=== PATIENT | female | born 1985 | race Caucasian/White ===

== ENCOUNTER 2020-02-27 18:00 | Outpatient (CLI) | payer OTHER, SELFPAY ==
--- NOTE | ~2020-02-27 | CT_ITS ---
EXAMINATION: CT sinus wo con DATE: 02/27/2020 18:15 INDICATION: Right eye pain TECHNIQUE: Computed tomography (CT) of the paranasal sinuses was performed without intravenous contra st. Coronal reconstructions were obtained. Iterative reconstruction technique was employed. The dose- length product was 313.83 mGy-cm. COMPARISON: None FINDINGS: Minimal mucosal thickening in the right maxillary and anterior left ethmoid sinuses. Bilateral ostiom eatal units are patent. Nasal septum is midline with right-sided spike. No maxillofacial fractures or osseous erosions. Subtle angulation at the suture between the left nasal bone and the anterior proce ss of the left maxilla which may represent sequela of old trauma. Bilateral orbits are normal. Bilate ral mastoid air cells and middle ear cavities are clear. Temporomandibular joints are normal alignmen t. The brain and facial soft tissues are unremarkable. IMPRESSION: 1. Minimal mucosal thickening in the right maxillary and anterior left ethmoid sinuses otherwise unre markable study with no etiology identified for reported right orbital pain. Reviewed, dictated and finalized at location [facility]. [employer] IMPRESSION: 1. Minimal mucosal thickening in the right maxillary and anterior left ethmoid sinuses otherwise unremarkable study with no etiology identified for reported r ight orbital pain.
== END 2020-02-27 18:01 | disposition home or self-care (01) ==
PROVIDERS: PCP Family Medicine; Visit Provider Family Medicine
DX: H57.11 Ocular pain, right eye (principal); G44.029 Chronic cluster headache, not intractable
CPT/HCPCS: 70486

== ENCOUNTER 2020-10-17 01:14 | Emergency (ER) | payer OTHER, SELFPAY ==
--- NOTE | ~2020-10-17 | CT_ITS ---
EXAMINATION: CT brain wo con DATE: 10/17/2020 01:43 INDICATION: Head injury. TECHNIQUE: Computed tomography (CT) of the head was performed without intravenous contrast. The mA wa s adjusted according to patient size. Iterative reconstruction technique was employed. The dose-lengt h product was 605.33 mGy-cm. COMPARISON: Sinuses CT 02/27/2020 FINDINGS: There is no intracranial hemorrhage, acute infarction, or abnormal intracranial mass lesion . The ventricles are normal in size. There is posterior scalp soft tissue swelling. There is mild muc osal thickening in the paranasal sinuses. The mastoid air cells are normal. The orbits are normal. IMPRESSION: 1. Normal brain. Reviewed, dictated and finalized at location A. IMPRESSION: 1. Normal brain.
[2020-10-17 01:15] VITALS: BP 159/95; PULSE 104; RESP 16; TEMP 37; O2SAT 99
--- NOTE | 2020-10-17 01:37 | ED.FALL ---
HPI - Fall General Chief Complaint: Fall Stated Complaint: slid in water and hit back of head-loc Time Seen by Provider: 10/17/20 01:22 Source: RN notes reviewed History of Present Illness HPI Narrative: Patient presents to emergency department from home for a fall. Patient states that she had had water in her basement from recent rain and slipped on the water in the basement falling backwards and striking her head states she did have loss of consciousness. She states initially she had numbness in the bilateral sides of her face that has improved and states she has a severe headache she denies any facial pain, neck pain or any other injuries states she has taken nothing for the pain patient does state that she has been having some right ear pain for the last week is scheduled to see Dr. Knight for ENT on the of the Related Data Allergies Allergy/AdvReac Type Severity Reaction Status Date / Time midazolam [From Versed] Allergy Mild Rash Verified 10/17/20 01:19 sumatriptan [From Imitrex] Allergy Mild throat Verified 10/17/20 01:19 swelling ubrogepant [From Ubrelvy] AdvReac Intermediate nausea Verified 10/17/20 01:19 Review of Systems Review of Systems: Narrative: Gen.: Denies fevers or chills Eyes: Denies eye pain or visual change ENT: Denies congestion Respiratory: Denies shortness of breath or cough CV: Denies chest pain or palpitations GI: Denies abdominal pain nausea, emesis or diarrhea Musculoskeletal: Denies back pain or muscle pain Neuro: See HPI Skin: Denies rash Except as documented, all other systems reviewed and negative PMFSH Past Medical History Medical History Fracture, pelvis closed Hyperhidrosis Migraines PCOS (polycystic ovarian syndrome) Pneumothorax Wrist fracture, bilateral Surgical History Surgical History H/O chest tube placement Hx of section Family History Family History Other Breast cancer Cerebrovascular accident Heart disease Hypertension Social History Social History Social History: Second hand tobacco smoke exposure: No Alcohol intake: never Alcohol use details: occassionally Substance use: never Substance use type: does not use Gender identity (if verbalized by the patient): Female Sexual Orientation (if Verbalized by the Patient): Straight or Heterosexual Exam Narrative: Exam Narrative: APPEARANCE: No acute distress, nontoxic, resting in bed EYES: EOMI, PERRL HEENT: Normocephalic, tender to palpation with swelling of her superior posterior scalp , no tenderness to palpation over the bilateral superior inferior orbits or zygomatic arch full range of motion of the jaw without pain left TM is normal in appearance the right TM has some erythema with effusion Neck: Supple no midline tenderness palpation for range of motion without pain RESPIRATORY: No respiratory distress Clear to auscultation bilaterally with no rhonchi wheezing or rales. CARDIOVASCULAR: Regular rate and rhythm without murmurs rubs or gallops. ABDOMINAL: Soft, nontender, nondistended, MUSCULOSKELETAl: Moves all extremities. No clubbing, cyanosis or edema. NEURO: Awake and alert x 4. Following commands, speech normal, no focal deficits SKIN:: Warm, dry. No rashes lesions or abrasions PSYCHIATRIC: Normal affect/mood, Course Course Emergency Course: Discussed with patient results of workup and diagnosis. Discussed need for follow-up with primary care, proper use of medication, and reasons to return to the emergency department. Patient understands and agrees to current treatment plan Vital Signs Vital signs: Vital Signs Temperature 98.6 F 10/17/20 01:15 Pulse Rate 104 H 10/17/20 01:15 Respiratory Rate 16 10/17/20 01:15 Blood Pre
[2020-10-17] MEDS: IBUPROFEN 600 MG TABLET PO (01:55)
[2020-10-17] MEDS: AMOXICILLIN/CLAVULANATE K 875-125 MG TAB 1 TABLET PO (02:59)
== END 2020-10-17 03:06 | disposition home or self-care (01) ==
PROVIDERS: Emergency Provider Emergency Medicine; PCP Family Medicine
DX: S00.93XA Contusion of unspecified part of head, initial encounter (principal); H66.91 Otitis media, unspecified, right ear; E28.2 Polycystic ovarian syndrome; W01.0XXA Fall on same level from slipping, tripping and stumbling without subsequent striking against object, initial encounter
CPT/HCPCS: 70450; 99284; A9270

== ENCOUNTER 2020-12-06 13:58 | Outpatient (CLI) | payer OTHER, SELFPAY | END 2020-12-06 13:59 | disposition home or self-care (01) | LOC: ANHAUDASC 13:59 | PROVIDERS: PCP Family Medicine; Visit Provider Otolaryngology | DX: H65.23 Chronic serous otitis media, bilateral (principal); H90.0 Conductive hearing loss, bilateral | CPT/HCPCS: 92557; 92567 ==

== ENCOUNTER 2021-11-14 00:11 | Day surgery (SDC) | payer OTHER, SELFPAY ==
[2021-11-04 15:11] VITALS: BMI 29.9
--- NOTE | 2021-11-14 12:26 | PM.HPGS ---
History of Present Illness History of Present Illness Consent: Risks, benefits, and alternatives have been discussed and questions answered. Patient agrees to proceed with procedure. Chief complaint: constipation Narrative: Rosaura Barclay is a 36 year old female with constipation using linzess without much benefit, never had colonoscopy. Father had colon cancer. Review of Systems Constitutional: Constitutional: Denies headache(s) and Denies weakness Eyes: Eyes: Denies blurry vision ENT: Reports Normal hearing present, Denies headache(s) and Denies neck pain Cardiovascular: Cardiovascular: Denies chest pain and Denies dyspnea Respiratory: Respiratory: Denies dyspnea Gastrointestinal: Gastrointestinal: Reports no additional gastrointestinal complaints Genitourinary: Genitourinary: Denies dysuria Musculoskeletal: Musculoskeletal: Denies neck pain Integumentary/Breasts: Skin/Breast: Denies dry skin Neurologic: Reports Normal hearing present, Denies headache(s) and Denies weakness Psychiatric: Psychiatric: Denies anxiety Endocrine: Endocrine: Denies change in body appearance Hematologic/Lymphatic: Hematologic/Lymphatic: Denies easy bleeding Allergic/Immunologic: Allergic/Immunologic: Denies urticaria PMFSH Past Medical History Medical History Fracture, pelvis closed Hyperhidrosis Migraines PCOS (polycystic ovarian syndrome) Pneumothorax Wrist fracture, bilateral Surgical History Surgical History H/O chest tube placement Hx of section Family History Family History Father Heart disease Carcinoma of colon, Onset Age: 40 Mother Alcoholism Asthma Hypertension Depression Heart disease Sibling Depression Thyroid disorder Grandparent Cancer Grandparent Cerebrovascular accident Heart disease Other Breast cancer Social History Social History (Updated 09/30/21 @ 10:27 by Dana Leonard) Social History: Smoking status: Never smoker Second hand tobacco smoke exposure: No Alcohol intake: current Alcohol use details: occassionally Substance use: never Substance use type: does not use Living arrangements: with family Gender identity (if verbalized by the patient): Female Sexual Orientation (if Verbalized by the Patient): Straight or Heterosexual Spiritual care concerns: No Meds Home Medications and Allergies Home Medications Medication Instructions Recorded Confirmed Type medroxyprogesterone 10 mg tablet 10 mg PO DAILY #30 tabs 09/30/21 11/04/21 Rx (Provera) linaclotide 145 mcg capsule 145 mcg PO DAILY PRN Constipation 11/04/21 11/04/21 History (Linzess) metformin 500 mg tablet 500 mg PO DAILY 11/04/21 11/04/21 History Allergies Allergy/AdvReac Type Severity Reaction Status Date / Time sumatriptan [From Imitrex] Allergy Severe throat Verified 11/14/21 12:22 swelling midazolam [From Versed] Allergy Mild Rash Verified 11/14/21 12:22 Exam Const: General: comfortable and no acute distress HENMT: General nose exam: Normal nares present Eyes: General: appearance normal, both eyes and all related structures Neck: Neck: no JVD Resp: Auscultation: clear to auscultation bilaterally Cardio: Rate: regular rate Rhythm: regular rhythm GI: Inspection: non-distended GI Palp: Yes Soft to palpation Skin: General skin exam: normal color Neuro: General: gait normal Speech: normal speech Extrem: General: normal to inspection Psych: Mental Status: mental status grossly normal Assessment and Plan Assessment and plan (1) Chronic constipation: Code(s): K59.09 - Other constipation Status: Acute (2) FHx: colon cancer: Code(s): Z80.0 - Family history of malignant neoplasm of digestive organs Status: Acute Assessment and
[2021-11-14 12:27] VITALS: BP 131/98; PULSE 67; RESP 18; TEMP 36.3; O2SAT 100
[2021-11-14] MEDS: LACTATED RINGERS 1,000 ML 150 ML IV CONT (12:29)
--- NOTE | 2021-11-14 12:31 | WPDANESEPPF ---
Anes - Initial Pre Proc Eval Procedure: Operation Date: 11/14/21 13:45 Proposed Procedures p Colonoscopy - Endy Keating MD Date/Time: 11/14/21 12:31 Surgeon: Endy Keating MD Pre Op Diagnosis: constipation Patient Data Age: 36 Gender: F Height: 1.63 m Weight: 80.3 kg Last Vital Signs Temp 97.3 F L 11/14/21 12:27 Pulse 67 11/14/21 12:27 Resp 18 11/14/21 12:27 BP 131/98 H 11/14/21 12:27 Pulse Ox 100 11/14/21 12:27 O2 Del Method Room Air 11/14/21 12:27 Allergies Allergy/AdvReac Type Severity Reaction Status Date / Time sumatriptan [From Imitrex] Allergy Severe throat Verified 11/14/21 12:22 swelling midazolam [From Versed] Allergy Mild Rash Verified 11/14/21 12:22 Home Medications Medication Instructions Recorded Confirmed Type medroxyprogesterone 10 mg tablet 10 mg PO DAILY #30 tabs 09/30/21 11/04/21 Rx (Provera) linaclotide 145 mcg capsule 145 mcg PO DAILY PRN Constipation 11/04/21 11/04/21 History (Linzess) metformin 500 mg tablet 500 mg PO DAILY 11/04/21 11/04/21 History Patient hx anesthesia problems: none Family hx anesthesia problems: none Results Review: All pre-operative results and documents have been reviewed as part of the pre-operative evaluation. [facility] Past Medical History Medical History Fracture, pelvis closed Hyperhidrosis Migraines PCOS (polycystic ovarian syndrome) Pneumothorax Wrist fracture, bilateral Surgical History Surgical History H/O chest tube placement Hx of section Family History Family History Father Heart disease Carcinoma of colon, Onset Age: 40 Mother Alcoholism Asthma Hypertension Depression Heart disease Sibling Depression Thyroid disorder Grandparent Cancer Grandparent Cerebrovascular accident Heart disease Other Breast cancer Social History Social History (Updated 09/30/21 @ 10:27 by Dana Leonard) Social History: Smoking status: Never smoker Second hand tobacco smoke exposure: No Alcohol intake: current Alcohol use details: occassionally Substance use: never Substance use type: does not use Living arrangements: with family Gender identity (if verbalized by the patient): Female Sexual Orientation (if Verbalized by the Patient): Straight or Heterosexual Spiritual care concerns: No Anes - Eval Final PreProcedure Day of Procedure 11/14/21 12:31 Patient weight: obese Heart: regular rate and rhythm Lungs: clear to auscultation Airway: Mallampati scale class II Neurological: alert and oriented Last oral intake: >/= 8 hours ASA classification: II Emergent: no Anesthetic plan: proceed Anesthesia type and monitoring: general GIVS and standard monitoring Results Review: All pre-operative results and documents have been reviewed as part of the pre-operative evaluation. Informed Consent: The patient's anesthetic plan and its attendant risks and benefits were discussed with the patient/family/POA. Questions were solicited and answers provided to the satisfaction of the patient/family/POA.
[2021-11-14 12:57] VITALS: BP 100/86; PULSE 71; RESP 18; O2SAT 100
[2021-11-14 13:07] VITALS: BP 91/58; PULSE 80; RESP 19; O2SAT 100
[2021-11-14 13:17] VITALS: BP 104/72; PULSE 71; RESP 19; O2SAT 100
== END 2021-11-14 13:24 | disposition home or self-care (01) ==
PROVIDERS: PCP Family Medicine; Visit Provider Internal Medicine Gastroenterology
PROC: 0DJD8ZZ Inspection of Lower Intestinal Tract, Via Natural or Artificial Opening Endoscopic (ICD-10-PCS; CPT 45378; principal; 2021-11-14 13:45)
DX: Z12.11 Encounter for screening for malignant neoplasm of colon (principal); D12.0 Benign neoplasm of cecum; Z80.0 Family history of malignant neoplasm of digestive organs; K64.8 Other hemorrhoids; K59.00 Constipation, unspecified; Z79.84 Long term (current) use of oral hypoglycemic drugs; R61 Generalized hyperhidrosis; E28.2 Polycystic ovarian syndrome; E66.9 Obesity, unspecified; Z68.30 Body mass index [BMI] 30.0-30.9, adult
CPT/HCPCS: 45385; 88305; J2704; J7120

== ENCOUNTER 2023-04-24 13:30 | Outpatient (CLI) | payer OTHER, SELFPAY ==
[2023-04-24 14:41] LABS: Influenza A QL RT-PCR Negative (Negative); Influenza B QL RT-PCR Negative (Negative); RSV RNA, RT-PCR Negative (Negative); SARS-CoV-2 RNA PCR Negative (Negative)
== END 2023-04-24 13:31 | disposition home or self-care (01) ==
LOC: ANHLAB 13:32
PROVIDERS: PCP Family Medicine; Visit Provider Physician Assistant
DX: J02.9 Acute pharyngitis, unspecified (principal); Z20.822 Contact with and (suspected) exposure to COVID-19
CPT/HCPCS: 87637

== ENCOUNTER 2023-04-26 07:25 | Emergency (ER) | payer OTHER, SELFPAY ==
[2023-04-26] VITALS (8 sets, daily range): BP systolic 111–139; BP diastolic 71–89; PULSE 88–91; RESP 16–20; TEMP 36.3; O2SAT 97–100
[2023-04-26 08:29] LABS: Influenza A QL RT-PCR Negative (Negative); Influenza B QL RT-PCR Negative (Negative); RSV RNA, RT-PCR Negative (Negative); SARS-CoV-2 RNA PCR Negative (Negative)
[2023-04-26] MEDS: KETOROLAC 30 MG/ML VIAL (*BKC) IV PUSH (10:05)
[2023-04-26] MEDS: LACTATED RINGERS 1,000 ML 999 ML IV CONT (10:05)
[2023-04-26] MEDS: MECLIZINE HCL 25 MG TABLET PO (10:07)
[2023-04-26] MEDS: PROCHLORPERAZINE EDISYLATE 10 MG/2 ML VIAL IV PUSH (10:07)
--- NOTE | 2023-04-26 10:08 | ED.GENADULT ---
HPI - General Adult General Chief complaint: Upper Respiratory Infection Stated complaint: so sick for a week Time Seen by Provider: 04/26/23 08:53 History of Present Illness HPI narrative: Rosaura Barclay is a 38 y/o female who presents today with complaints of having a URI symptoms of cough/sore throat/ headache/ ear pain now for over 1 week,. she states that her PCP put her on steroids 6 days ago that she finished and started her on Augmentin and azithromycin yesterday for URI/ ear infection. She presents today because she states she is feeling worsening left ear pain/ light headed dizzy/ nausea She took her antibiotics yesterday but has not yet today because she felt worse. No SOB/chest pain Related Data Home Medications Medication Instructions Recorded Confirmed linaclotide 145 mcg capsule 145 mcg PO DAILY PRN Constipation 11/04/21 04/25/23 (Linzess) metformin 500 mg tablet 500 mg PO DAILY 11/04/21 04/25/23 Allergies Allergy/AdvReac Type Severity Reaction Status Date / Time sumatriptan [From Imitrex] Allergy Severe throat Verified 04/26/23 07:37 swelling midazolam [From Versed] Allergy Mild Rash Verified 04/26/23 07:37 Review of Systems Review of Systems: CONSTITUTIONAL: Denies fever, chills, or sweats. EYES: Denies visual changes, redness, or discharge. ENT: Denies rhinorrhea, reports congestion, reports sore throat, reports severe left ear pain CARDIOVASCULAR: Denies chest pain, palpitations, or edema. RESPIRATORY: Reports cough off and on for over a week denies dyspnea. GASTROINTESTINAL: Denies abdominal pain, nausea, vomiting, or diarrhea. GENITOURINARY: Denies dysuria or hematuria. SKIN: Denies rash or itching. MUSCULOSKELETAL: Denies back pain, joint pain, or myalgia. NEUROLOGIC: Denies headache, numbness, reports having some dizziness today or weakness. PSYCHIATRIC: Denies anxiety or depression. [facility] Past Medical History Medical History Fracture, pelvis closed Hyperhidrosis Migraines PCOS (polycystic ovarian syndrome) Pneumothorax Wrist fracture, bilateral Surgical History Surgical History H/O chest tube placement Hx of section Family History Family History Father Heart disease Carcinoma of colon, Onset Age: 40 Mother Alcoholism Asthma Hypertension Depression Heart disease Sibling Depression Thyroid disorder Grandparent Cancer Grandparent Cerebrovascular accident Heart disease Other Breast cancer Social History Social History Social History: Smoking status: Never smoker Second hand tobacco smoke exposure: No Alcohol intake: current Alcohol use details: occassionally Substance use: never Substance use type: does not use Living arrangements: with family Occupation/Education: occupation Gender identity (if verbalized by the patient): Female Sexual Orientation (if Verbalized by the Patient): Straight or Heterosexual Spiritual care concerns: No Exam Narrative: GENERAL: Well-appearing, well-nourished, and in no acute distress. HEAD: Normocephalic, atraumatic. EYES: PERRLA and EOMI. ENT: Nares clear, no rhinorrhea or epistaxis. Mucous membranes moist. Oropharynx without tonsillar hypertrophy exudate or other lesions. right TM pearly bess nonbulging Left TM + erythemic with mild cerumen present NECK: Supple. No adenopathy or masses. No carotid bruits or JVD CHEST: Clear to auscultation. No respiratory distress. No wheezes rales or rhonchi HEART: Regular rate and rhythm. No murmur heard. Normal peripheral pulses. ABDOMEN: Soft, nontender, nondistended, normal active bowel sounds. EXTREMITIES: Normal range of motion. No edema. SKIN: Warm, dry, no rash. NEURO: No focal deficits. Alert and oriented x3.
[2023-04-26 10:13] LABS: Basophils Absolute Auto 0.1 K/mm3 (0.0-0.1); Basophils Percent Auto 0.5 % (0.2-1.2); Eosinophils Absolute Auto 0.1 K/mm3 (0-0.3); Hematocrit 39.6 % (37.0-47.0); Hemoglobin 12.4 g/dL (12.0-15.0); Immature Granulocyte Absolute 0.52 K/mm3 (0.00-0.031); Immature Granulocyte Percent A 4.3 % (0-0.5); Lymphocytes Absolute Auto 3.95 K/mm3 (0.9-3.2); Lymphocytes Percent Auto 32.5 % (18.3-44.2); Mean Corpuscular HGB Conc 31.3 g/dl (32-36); Mean Corpuscular Hemoglobin 26.8 pg (26-34); Mean Corpuscular Volume 85.5 fl (80-100); Monocytes Absolute Auto 1.1 K/mm3 (0.1-0.6); Monocytes Percent Auto 9.2 % (2.6-8.5); Neutrophils Absolute Auto 6.4 K/mm3 (1.3-6.7); Neutrophils Percent Auto 52.5 % (45.5-73.1); Platelet Count Result 269 k/mm3 (150-375); Red Blood Count 4.63 M/mm3 (4.2-5.4); Red Cell Distribution Width 14.6 % (11.5-14.5); White Blood Count 12.2 K/mm3 (4.5-10.0)
[2023-04-26 10:33] LABS: Alanine Aminotransferase 18 U/L (6-35); Albumin Level 3.6 g/dL (3.5-5.1); Alkaline Phosphatase 72 U/L (38-126); Anion Gap 4 mmol/L (8-16); Aspartate Amino Transferase 23 U/L (14-36); Bilirubin,Total 0.3 mg/dL (0.2-1.3); Blood Urea Nitrogen 17 mg/dL (7-17); Calcium 7.8 mg/dL (8.4-10.2); Carbon Dioxide 34 mmol/L (22-30); Chloride 99 mmol/L (98-107); Estimated CRCL calculation 101 ml/min; Estimated Glomerular Filt Rate > 60; Glucose 82 mg/dL (65-110); Potassium 3.6 mmol/L (3.4-5.0); Sodium 137 mmol/L (137-145)
--- NOTE | 2023-04-26 11:01 | PC.NURSE ---
Ambulatory to bathroom with steady gait. Reports decrease in dizziness.
[2023-04-26 11:07] LABS: Appearance Urine Cloudy (Clear); Bacteria Urine None Seen /hpf; Bilirubin Urine Negative (Negative); Blood Urine Negative (Negative); Color Urine Yellow (Yellow); Glucose Urine UA Negative (Negative); Ketones Urine Negative (Negative); Leukocyte Esterase Ur Negative LEU/UL (Negative); Nitrate Urine Negative (Negative); Non Pathogenic Casts 0-2; Protein Urine Negative (Negative); RBC Urine 0-2 /hpf (0-2); Specific Grav Ur 1.018 (1.001-1.035); Squamous Epithelial Cell Urine Moderate /hpf (Few); Urobilinogen Urine 0.2 mg/dL (<2.0); WBC Urine 0-5 /hpf
[2023-04-26 11:14] LABS: Add Urine Microscopic? YES
== END 2023-04-26 12:47 | disposition home or self-care (01) ==
PROVIDERS: Emergency Medicine; Emergency Provider Nurse Practitioner Family; PCP Family Medicine
DX: J06.9 Acute upper respiratory infection, unspecified (principal); H66.002 Acute suppurative otitis media without spontaneous rupture of ear drum, left ear; Z20.822 Contact with and (suspected) exposure to COVID-19; E28.2 Polycystic ovarian syndrome
CPT/HCPCS: 36415; 80053; 81001; 85025; 87637; 96361; 96374; 96375; 99284; A9270; J0780; J1885; J7120